=== PATIENT | male | born 1945 | race African-American/Black ===

== ENCOUNTER 2021-02-13 16:27 | Inpatient (IN) | payer OTHER, SELFPAY ==
[2021-02-13] VITALS (9 sets, daily range): BP systolic 111–133; BP diastolic 51–71; PULSE 74–93; RESP 16–26; TEMP 36.9–37.7; O2SAT 97–100; BMI 21.7
--- NOTE | 2021-02-13 16:54 | ED_ITS ---
HPI - Psych General Chief Complaint: Psychiatric Symptoms Stated Complaint: crisis Time Seen by Provider: 02/13/21 16:54 Source: patient Mode of arrival: EMS Limitations: no limitations History of Present Illness HPI Narrative: Patient has some anxiety came from rehab center nonambulatory says that he does on to live in re[facility] as in [facility] center. Also said he does want to live anymore and without any significant plan says that he does not want any treatments but still [facility] to [facility] Related Data Allergies Allergy/AdvReac Type Severity Reaction Status Date / Time cephalexin [From Keflex] Allergy Unknown Verified 02/13/21 16:52 Review of Systems Review of Systems: Yes all other systems are reviewed and are negative [facility] Past Medical History Medical History 23-polyvalent pneumococcal polysaccharide vaccine indication of diabetes in patient 6 to 64 years of age CKD (chronic kidney disease) Colostomy in place HTN (hypertension) Insomnia Malignant neoplasm of colon Schizophrenia Social History Social History Patient Tobacco Use Status: Never used Tobacco Use of substances other than those prescribed or required for medical reasons: No Advance Directives: No Advance Directives Information Provided: No Physical Exam Vital Signs: Vital Signs: Last Vital Signs Temp 99.8 F 02/13/21 19:58 Pulse 85 02/13/21 19:58 Resp 20 02/13/21 19:58 BP 113/57 L 02/13/21 19:58 Pulse Ox 97 02/13/21 19:58 Body Mass Index 21.7 Appearance: Alert. Oriented X3. No acute distress. Eyes: No pallor or icterus ENT: Pharynx normal. Oral Mucosa moist Neck: Normal inspection. Neck supple. CVS: Normal heart rate and rhythm. Pulses normal. Pacemaker+ Respiratory: No respiratory distress. Equal air entry bilateral, no wheezing/rales/rhonchi Abdomen: Soft and nontender. Bowel sounds are present, no mass palpable, colostomy bag in place Skin: Skin warm and dry. Normal skin color. Normal skin turgor. Extremities: No lower extremity edema. No calf tenderness Psych: Denies any current suicidal thought denies any depression or anxiety Neuro: Oriented X 3. Limited movement of lower extremities Course Course Course Narrative: Case discussed with healthcare proxy (invoked) nayana roger who is patient's son, phone #[phone] agreed for blood transfusion MDM - Psych Lab Data Result diagrams: 02/13/21 17:29 02/13/21 17:29 Labs: Lab Results 02/13/21 02/13/21 02/13/21 Range/Units 17:29 17:29 17:29 WBC 9.1 (4.8-10.8) X10*3/uL RBC 3.07 L (4.60-5.80) X10*6/uL Hgb 6.6 L* (14.0-18.0) g/dl Hct 22.8 L (42-52) % MCV 74.3 L (80-98) fL MCH 21.5 L (27.0-33.0) pg MCHC 28.9 L (31.0-36.0) g/dl RDW 19.3 H (11.0-16.0) % Plt Count 261 (160-400) X10*3/uL MPV 9.7 (9.4-12.4) fL Immature Gran % (Auto) 0.4 (0.0-0.4) % Neut % (Auto) 85.0 H (45-73) % Lymph % (Auto) 5.4 L (20-40) % [place] % (Auto) 8.7 (2-11) % Eos % (Auto) 0.3 (0-4) % Baso % (Auto) 0.2 (0-2) % Lymph # (Auto) 0.5 L (1.2-4.9) X10*3/uL [place] # (Auto) 0.8 (0.1-1.2) X10*3/uL Eos # (Auto) 0.0 (0.0-0.4) X10*3/uL Baso # (Auto) 0.0 (0.0-0.2) X10*3/uL Abs Immat Gran (auto) 0.04 H (0.00-0.03) X10*3/uL Absolute Neuts (auto) 7.8 (2.0-8.3) X10*3/uL Absolute Nucleated RBC 0.000 (0.0-0.012) X10*3/uL Nucleated RBC % (auto) 0.0 (0.0-0.2) /100WBC Sodium 140 (135-145) mmol/L Potassium 3.8 (3.3-5.1) mmol/L Chloride 103 (96-108) mmol/L Carbon Dioxide 25 (22-29) mmol/L Anion Gap 16 (12-20) BUN 15 (9-16) mg/dL Creatinine 1.04 (0.5-1.4) mg/dL Estim Creat Clear Calc 62.3 Estimated GFR > 60 Random Glucose 147 H (60-115) mg/dL Calcium 9.0 (8.4-10.2) mg/dL Iron 19 L (45-160) mcg/dL TIBC 183 L (228-428) mcg/dL % Saturation 10 L (15-50) % Unsat Iron Binding 164 ug/dL Ferritin 571 H (20-250) ng/mL Total Bilirubin 0.7 (0.0-1.0) mg/dL AST 46 H (5-37) U/L ALT 24 (0-40) U/L Alkaline Phosphatase 304 H (39-117) U/L Total Protein 7.1 (6.5-8.0) g/dL Albumin 3.3 L (3.5-5.0) g/dL Stool Occult Blood (NEGATIVE) COVID-19 (SILVIA) Negative (Negative) COVID-19 Clin Com See Note Blood Type Antibody Screen Crossmatch 02/13/21 02/13/21 Range/Units 18:31 18:43 WBC (4.8-10.8) X10*3/uL RBC (4.60-5.80) X10*6/uL Hgb (14.0-18.0) g/dl Hct (42-52) % MCV (80-98) fL MCH (27.0-33.0) pg MCHC (31.0-36.0) g/dl RDW (11.0-16.0) % Plt Count (160-400) X10*3/uL MPV (9.4-12.4) fL Immature Gran % (Auto) (0.0-0.4) % Neut % (Auto) (45-73) % Lymph % (Auto) (20-40) % [place] % (Auto) (2-11) % Eos % (Auto) (0-4) % Baso % (Auto) (0-2) % Lymph # (Auto) (1.2-4.9) X10*3/uL [place] # (Auto) (0.1-1.2) X10*3/uL Eos # (Auto) (0.0-0.4) X10*3/uL Baso # (Auto) (0.0-0.2) X10*3/uL Abs Immat Gran (auto) (0.00-0.03) X10*3/uL Absolute Neuts (auto) (2.0-8.3) X10*3/uL Absolute Nucleated RBC (0.0-0.012) X10*3/uL Nucleated RBC % (auto) (0.0-0.2) /100WBC Sodium (135-145) mmol/L Potassium (3.3-5.1) mmol/L Chloride (96-108) mmol/L Carbon Dioxide (22-29) mmol/L Anion Gap (12-20) BUN (9-16) mg/dL Creatinine (0.5-1.4) mg/dL Estim Creat Clear Calc Estimated GFR Random Glucose (60-115) mg/dL Calcium (8.4-10.2) mg/dL Iron (45-160) mcg/dL TIBC (228-428) mcg/dL % Saturation (15-50) % Unsat Iron Binding ug/dL Ferritin (20-250) ng/mL Total Bilirubin (0.0-1.0) mg/dL AST (5-37) U/L ALT (0-40) U/L Alkaline Phosphatase (39-117) U/L Total Protein (6.5-8.0) g/dL Albumin (3.5-5.0) g/dL Stool Occult Blood POSITIVE (NEGATIVE) COVID-19 (SILVIA) (Negative) COVID-19 Clin Com Blood Type A Positive Antibody Screen NEGATIVE Crossmatch See Detail Discharge Plan Discharge Clinical Impression: Severe anemia, Depression with suicidal ideation GI bleed Qualifiers: GI bleed type/associated pathology: unspecified gastrointestinal hemorrhage type Qualified Code(s): K92.2 - Gastrointestinal hemorrhage, unspecified Patient Disposition: Admitted As Inpatient
[2021-02-13 17:36] LABS: MANUAL DIFF FLAG NO
[2021-02-13 17:37] LABS: Basophils Percent Auto 0.2 % (0-2); Hematocrit 22.8 % (42-52); Lymphocytes Absolute Auto 0.5 X10*3/uL (1.2-4.9); Mean Corpuscular HGB Conc 28.9 g/dl (31.0-36.0); Monocytes Percent Auto 8.7 % (2-11)
[2021-02-13 17:43] LABS: Eosinophils Percent Auto 0.3 % (0-4); Imm Gran Abs Auto 0.04 X10*3/uL (0.00-0.03); Imm Gran Pct Auto 0.4 % (0.0-0.4); Lymphocytes Percent Auto 5.4 % (20-40); Mean Corpuscular Hemoglobin 21.5 pg (27.0-33.0); Mean Corpuscular Volume 74.3 fL (80-98); Mean Platelet Volume 9.7 fL (9.4-12.4); Monocytes Absolute Auto 0.8 X10*3/uL (0.1-1.2); Neutrophils Absolute Auto 7.8 X10*3/uL (2.0-8.3); Platelet Count 261 X10*3/uL (160-400); Red Blood Count 3.07 X10*6/uL (4.60-5.80); Red Cell Distribution Width 19.3 % (11.0-16.0); White Blood Count 9.1 X10*3/uL (4.8-10.8)
[2021-02-13 17:53] LABS: Hemoglobin 6.6 g/dl (14.0-18.0)
[2021-02-13 17:54] LABS: COVID-19 Test Negative (Negative)
[2021-02-13 18:03] LABS: Alanine Aminotransferase 24 U/L (0-40); Albumin Level 3.3 g/dL (3.5-5.0); Alkaline Phosphatase 304 U/L (39-117); Anion Gap 16 (12-20); Aspartate Amino Transferase 46 U/L (5-37); Bilirubin Total 0.7 mg/dL (0.0-1.0); Blood Urea Nitrogen 15 mg/dL (9-16); Carbon Dioxide 25 mmol/L (22-29); Chloride 103 mmol/L (96-108); Creatinine Clr Calc Pharmacy 62.3; Estimated Glomerular Filt Rate > 60; Glucose Random 147 mg/dL (60-115); Potassium 3.8 mmol/L (3.3-5.1); Sodium 140 mmol/L (135-145); Total Protein 7.1 g/dL (6.5-8.0)
--- NOTE | 2021-02-13 18:32 | PC.NURSE ---
Low h/h, Dr Rockwell to bedside for occult stool collection from ostomy and positive. New colostomy appliance applied and old appliance leaking. Pt cleaned and repositioned. 18G to right ac. Agreeable to transfusion. NSR on tele.
[2021-02-13 18:40] LABS: OBS Int Ctl Valid YES; OBS1 POSITIVE (NEGATIVE)
[2021-02-13] MEDS: Pantoprazole Sodium 40 MG/10 ML VIAL 80 MG IVPUSH (18:41)
[2021-02-13 18:43] LABS: Iron 19 mcg/dL (45-160); Percent Iron Saturation 10 % (15-50); Total Iron Binding Capacity 183 mcg/dL (228-428); Unsaturated Iron Binding 164 ug/dL
[2021-02-13 19:03] LABS: Ferritin 571 ng/mL (20-250)
--- NOTE | 2021-02-13 19:25 | MHC.CARE ---
CARE team consult received for pt who arrived by ambulance from [facility] for worsening symptoms of paranoia, delusions, and suicidal ideation that have been persisting for three weeks. He had met with the sheriffs detective and made several suicide statements and led her to making the decision to have him sent to the ED for evaluation. This automotive service writer spoke with nurse at the facility (Annetta Espinosa LPN) She shared that he is paranoid at baseline, but has been reporting a spirit named Yvonne who is inside him and controlling his actions and believes that he can cough her out, that there are [employer] [place] dancing around his room at night and tormenting him, that the government has been switching out his internal organs with sandbags, and he recently called [facility] asking them to pull the plug on him. One month ago he was started on risperidone (BID) and remeron at night, which have not bee successful with symptom reduction. The [facility] [place] [facility] for inpt psych admission and have been waiting on the [facility] medical social consultant to complete the needed paperwork. This automotive service writer reached out to [facility] [place] to see if there is any documentation in the record indicating this. After hours cut out machine operator reported that there was a note from yesterday documenting that pt has been experiencing exacerbated psychiatric symptoms but did not indicate a plan of care. This automotive service writer met with pt, who reported that he hasn't been able to eat or sleep and that he wants to just pull the plug. He's [facility] the [facility] to [facility] treatment so he can feel better. When this automotive service writer went to discuss the case with ED physician it was indicated that pt is anemic (hemoglobin 6.6) with a GI bleed and in need of a blood transfusion. Plan is for medical admission. Shane Jones updated. Spoke with manager spa re: current discharge plan, and when pt is ready for discharge it should be coordinated with Shane Jones and [facility]. CARE team available for further behavioral health evaluation if needed. Shane Jones - [phone] [facility] Production Specialist - Denny Valenzuela [phone] Health Care Proxy is invoked (not on file) since 08/23/2020 HCP Roro Paiz, son [phone]
--- NOTE | 2021-02-13 20:09 | MHC.CM.ED ---
Yaquelin OVIEDO, care team tells CM that [facility] has been working with [facility] to admit this pt psychiatrically. Please ngozi out to [place] Department Supervisor at [facility] to review D/C plan for this patient when medically cleared. See Care Team notes per Yaquelin.
[2021-02-13] MEDS: Acetaminophen 325 MG TABLET 650 MG PO (20:50)
--- NOTE | 2021-02-13 20:52 | PHA.MEDREC ---
Pharmacy Consult ? Medication Reconciliation Pharmacy has completed the medication reconciliation. Med list from Shane Jones on [place].
[2021-02-13 21:32] LABS: Appearance Urine HAZY; Color Urine YELLOW; Glucose Urine UA NEG (NEG); Leukocyte Esterase Urine NEG (NEG); Nitrite Urine NEG (NEG); Specific Gravity - Urine 1.015 (1.005-1.025); Urine Blood NEG (NEG); Urine Ketones NEG (NEG); Urine Protein TRACE MG/DL (NEG-TRACE)
[2021-02-13 21:47] LABS: Amphetamine Screen Urine Not Detected (Not Detect); Barbiturates, Urine Not Detected (Not Detect); Benzodiazepines Screen Urine Not Detected (Not Detect); Cannabinoid Screen Urine Not Detected (Not Detect); Cocaine Screen Urine Not Detected (Not Detect); Fentanyl, urine POSITIVE (Not Detect); Opiate Screen Urine Not Detected (Not Detect); Phencyclidine Screen Urine Not Detected (Not Detect)
--- NOTE | 2021-02-13 22:06 | PM.IMHP ---
History of Present Illness Date of Service: 02/13/21 Chief Complaint: Stating that he does know live anymore This is a 75-year-old male with past medical history of CKD, HTN, insomnia, history of malignant neoplasm of colon status post colectomy and colostomy, schizophrenia who presents to the hospital from retirement stating that he does not want to live anymore. Patient has a flat affect, not forthcoming with much history but reports that he is feeling significantly depressed and is just not doing well mentally and [facility]. While in the ED workup showed significant anemia with a hemoglobin of 6.6. When discussed further patient does want blood transfusion and once further intervention and evaluation of his anemia therefore patient will be admitted for that reason. He denies any abdominal pain, no nausea or vomiting, no diarrhea or constipation, he denies any melena, denies any bright red blood per rectum, no hematochezia or hematemesis. Patient denies any headache or change in vision, no chest pain or shortness of breath. No urinary symptoms and no lower extremity edema. On arrival to the ED patient hemodynamically stable with no significant abnormal vital For WBC count of 9.1, hemoglobin of 6.6 (no previous for comparison), hematocrit of 22.8, MCV of 74.3, iron of 19, ferritin of 571 T IV of 183 AST of 46, alk-phos of 304, UA negative, COVID negative. Stool occult blood positive Patient receiving 1 unit of will be admitted for further evaluation Review of Systems Review of Systems: Yes all other systems are reviewed and are negative [facility] Medical History 23-polyvalent pneumococcal polysaccharide vaccine indication of diabetes in patient 6 to 64 years of age CKD (chronic kidney disease) Colostomy in place HTN (hypertension) Insomnia Malignant neoplasm of colon Schizophrenia Pertinent family history: No pertinent history Surgical History History of colectomy Social History Patient Tobacco Use Status: Never used Tobacco Use of substances other than those prescribed or required for medical reasons: No Advance Directives: No Advance Directives Information Provided: No Meds Allergies Allergy/AdvReac Type Severity Reaction Status Date / Time cephalexin [From Keflex] Allergy Unknown Verified 02/13/21 16:52 Active Medications: Current Medications Pharmacy Consult (Consult Rx Perform Med Rec) 1 each MISCELLANE ONCE PRN PRN Reason: Consult order Home Medications Medication Instructions Recorded Confirmed Last Taken Type acetaminophen 325 mg tablet 650 mg PO Q6H PRN 02/13/21 02/13/21 Unknown History amlodipine 10 mg tablet 10 mg PO DAILY 02/13/21 02/13/21 Unknown History ammonium lactate 12 % topical cream 1 appl TOPICAL BID PRN 02/13/21 02/13/21 Unknown History bisacodyl 10 mg rectal suppository 10 mg SC DAILY PRN 02/13/21 02/13/21 Unknown History (Dulcolax (bisacodyl)) ferrous sulfate 325 mg (65 mg 325 mg PO DAILY 02/13/21 02/13/21 Unknown History iron) tablet guaifenesin 100 mg/5 mL oral liquid 100 mg PO Q4H PRN 02/13/21 02/13/21 Unknown History haloperidol 2 mg tablet 2 mg PO BID 02/13/21 02/13/21 Unknown History mirtazapine 7.5 mg tablet 7.5 mg PO BEDTIME 02/13/21 02/13/21 Unknown History polyethylene glycol 3350 17 17 g PO DAILY PRN 02/13/21 02/13/21 Unknown History gram/dose oral powder (Miralax) risperidone 2 mg tablet (Risperdal) 2 mg PO BID 02/13/21 02/13/21 Unknown History rivaroxaban 15 mg tablet (Xarelto) 15 mg PO DAILY 02/13/21 02/13/21 Unknown History trazodone 50 mg tablet 50 mg PO BEDTIME 02/13/21 02/13/21 Unknown History vitamin E 400 unit capsule 400 unit PO DAILY 02/13/21 02/13/21 Unknown History Physical Exam Vital Signs and Narrative: Vital Signs: Last Vital Signs Temp 98.6 F 02/13/21 22:00 Pulse 74 02/13/21 22:00 Resp 26 H 02/13/21 22:00 BP 115/62 02/13/21 22:00 Pulse Ox 97 02/13/21 22:00 Body Mass Index 21.7 Const: Other: Appears significantly depressed with flat affect General: cooperative and no acute distress Orientation/consciousness: patient oriented x3 Eyes: General: appearance normal, both eyes and all related structures Resp: Effort & Inspection: normal respiratory effort Auscultation: clear to auscultation bilaterally Cardio: Rate: regular rate Rhythm: regular rhythm GI: Other: Colostomy bag with small amount of brown stool Palpation (GI): Soft to palpation Auscultation: normal bowel sounds Skin: General skin exam: no rashes or lesions noted Neuro: General: patient oriented x3 Cognition (Neuro): normal cognition Extrem: General: Yes normal to inspection and Yes no pedal edema Results Labs CBC and Chem 7: 02/13/21 17:29 02/13/21 17:29 Labs: Laboratory Results - last 24 hr 02/13/21 02/13/21 02/13/21 17:29 17:29 17:29 MCV 74.3 L MCH 21.5 L MCHC 28.9 L RDW 19.3 H Plt Count 261 MPV 9.7 Immature Gran % (Auto) 0.4 Neut % (Auto) 85.0 H Lymph % (Auto) 5.4 L [place] % (Auto) 8.7 Eos % (Auto) 0.3 Baso % (Auto) 0.2 Lymph # (Auto) 0.5 L [place] # (Auto) 0.8 Eos # (Auto) 0.0 Baso # (Auto) 0.0 Abs Immat Gran (auto) 0.04 H Absolute Neuts (auto) 7.8 Absolute Nucleated RBC 0.000 Nucleated RBC % (auto) 0.0 Anion Gap 16 Estim Creat Clear Calc 62.3 Estimated GFR > 60 Random Glucose 147 H Calcium 9.0 Iron 19 L TIBC 183 L % Saturation 10 L Unsat Iron Binding 164 Ferritin 571 H Total Bilirubin 0.7 AST 46 H ALT 24 Alkaline Phosphatase 304 H Total Protein 7.1 Albumin 3.3 L Urine Color Urine Appearance Urine pH Ur Specific [place] Urine Protein Urine Glucose (UA) Urine Ketones Urine Blood Urine Nitrite Ur Leukocyte Esterase Stool Occult Blood Urine Opiates Screen Urine Fentanyl Screen Ur Barbiturates Screen Ur Phencyclidine Scrn Ur Amphetamines Screen U Benzodiazepines Scrn Urine Cocaine Screen U Marijuana (THC) Screen COVID-19 (SILVIA) Negative COVID-19 Clin Com See Note Blood Type Antibody Screen Crossmatch 02/13/21 02/13/21 02/13/21 18:31 18:43 21:24 MCV MCH MCHC RDW Plt Count MPV Immature Gran % (Auto) Neut % (Auto) Lymph % (Auto) [place] % (Auto) Eos % (Auto) Baso % (Auto) Lymph # (Auto) [place] # (Auto) Eos # (Auto) Baso # (Auto) Abs Immat Gran (auto) Absolute Neuts (auto) Absolute Nucleated RBC Nucleated RBC % (auto) Anion Gap Estim Creat Clear Calc Estimated GFR Random Glucose Calcium Iron TIBC % Saturation Unsat Iron Binding Ferritin Total Bilirubin AST ALT Alkaline Phosphatase Total Protein Albumin Urine Color YELLOW Urine Appearance HAZY Urine pH 6.0 Ur Specific [place] 1.015 Urine Protein TRACE Urine Glucose (UA) NEG Urine Ketones NEG Urine Blood NEG Urine Nitrite NEG Ur Leukocyte Esterase NEG Stool Occult Blood POSITIVE Urine Opiates Screen Urine Fentanyl Screen Ur Barbiturates Screen Ur Phencyclidine Scrn Ur Amphetamines Screen U Benzodiazepines Scrn Urine Cocaine Screen U Marijuana (THC) Screen COVID-19 (SILVIA) COVID-19 StepUp Com Blood Type A Positive Antibody Screen NEGATIVE Crossmatch See Detail 02/13/21 21:24 MCV MCH MCHC RDW Plt Count MPV Immature Gran % (Auto) Neut % (Auto) Lymph % (Auto) [place] % (Auto) Eos % (Auto) Baso % (Auto) Lymph # (Auto) [place] # (Auto) Eos # (Auto) Baso # (Auto) Abs Immat Gran (auto) Absolute Neuts (auto) Absolute Nucleated RBC Nucleated RBC % (auto) Anion Gap Estim Creat Clear Calc Estimated GFR Random Glucose Calcium Iron TIBC % Saturation Unsat Iron Binding Ferritin Total Bilirubin AST ALT Alkaline Phosphatase Total Protein Albumin Urine Color Urine Appearance Urine pH Ur Specific [place] Urine Protein Urine Glucose (UA) Urine Ketones Urine Blood Urine Nitrite Ur Leukocyte Esterase Stool Occult Blood Urine Opiates Screen Not Detected Urine Fentanyl Screen POSITIVE H Ur Barbiturates Screen Not Detected Ur Phencyclidine Scrn Not Detected Ur Amphetamines Screen Not Detected U Benzodiazepines Scrn Not Detected Urine Cocaine Screen Not Detected U Marijuana (THC) Screen Not Detected COVID-19 (SILVIA) COVID-Playdek Com Blood Type Antibody Screen Crossmatch Assessment and Plan (1) GI bleed: Qualifiers: GI bleed type/associated pathology: unspecified gastrointestinal hemorrhage type Qualified Code(s): K92.2 - Gastrointestinal hemorrhage, unspecified Status: Acute (2) Severe anemia: Status: Acute (3) Depression with suicidal ideation: Status: Acute This is a 75-year-old male with past medical history of colon cancer status post colectomy, insomnia, hypertension who initially came into the hospital for depression and suicidal ideation is now being admitted for significant anemia # macrocytic anemia - possibly a combination of anemia of chronic disease as well as GI bleed as he has positive occult stool - patient receiving PRBC - will follow H&H - gastroenterology consult - will make NPO # GI bleed - has significant anemia with positive guaiac - patient on Xarelto for PE/DVT prevention per documentation/ED physician - will hold Xarelto - consult GI # depression suicidal ideation - patient has no plan but feels very depressed and would like to - care team consult - close monitoring # insomnia - continue mirtazapine and trazodone DVT prophylaxis: SCDs Quality Stroke Does the patient have a stroke diagnosis?: No VTE Prior VTE?: No VTE Risk Level:: Medical - moderate - high VTE Device Contraindication: N/A - Device Ordered VTE Drug Contraindication: Treatment Not Indicated
--- NOTE | 2021-02-13 22:40 | PC.NURSE ---
Pt alert and confused per baseline mental status. Pt received 1 unit blood transfusion and tolerated well. IV intact and flushes well. Vitals remain stable, afebrile. No transfusion reactions noted at this time. Pt resting in stretcher without complaints, will continue to monitor.
[2021-02-14] VITALS (9 sets, daily range): BP systolic 103–134; BP diastolic 46–67; PULSE 76–87; RESP 16–37; TEMP 36.6–37.4; O2SAT 97–100
--- NOTE | 2021-02-14 06:04 | PC.NURSE ---
Pt alert and confused, calm and cooperative. Pt at baseline mental status. Pt denies pain. Pt tuned and positioned. Pt voided multiple times over night. Linens changed. IV intact. Vitals stable. Will continue to monitor.
--- NOTE | 2021-02-14 07:25 | PC.NURSE ---
Assumed care of patient. Pt is resting comfortably at this time and does not appear to be in any distress. Pt waiting for room assignment.
--- NOTE | 2021-02-14 08:36 | PC.NURSE ---
Pt is now awake and is requesting to eat, however pt is NPO for a GI bleed. Pt reassured, but is confused.
[2021-02-14] MEDS: amLODIPine Besylate 10 MG TABLET PO (09:21)
[2021-02-14] MEDS: HaloperidoL 1 MG TABLET 2 MG PO ×2 (09:21→19:53)
[2021-02-14] MEDS: risperiDONE 2 MG TABLET PO ×2 (09:21→19:53)
--- NOTE | 2021-02-14 10:00 | P.CNGI_ITS ---
History of Present Illness Data of Consult Service Date: 02/14/21 Requesting physician: Jack Staton Primary Care Provider: Kia Colon MD HPI Reason for consult: anemia 75-year-old male with history of CKD, HTN, insomnia, history of malignant neoplasm of colon s/p partial colectomy and colostomy, schizophrenia who I am seeing for assessment for anemia. Patient is poor historian and not engaged with the conversation. [facility] due to suicidal ideation, and feeling depressed and needing help to . As part of evaluation he had blood work which revealed HGB 6.6, and elevated LFT, low iron sat, elevated ferritin, neg UA with no known prior results. He denies seeing any blood in stoma bag, no melena or rectal bleeding. Appetite has been poor and weight has been oscillating up and down. He denies abdominal pain, no nausea, vomiting, or dysphagia. He was agreeable to a blood transfusion which he received. [facility] and did not know why he has a stoma. He refuses to have endoscopic work up for anemia. Review of Systems Review of Systems: Constitutional : No Weight loss, No Fever, No Chills ENT/Mouth : No sore throat, No Rhinorrhea Eyes: No Swelling, No Redness Cardiovascular : No Chest Pain, No SOB, No Edema Respiratory : No Cough, No Sputum, No Wheezing Gastrointestinal : see HPI Genitourinary : NO Dysuria, No Urinary Frequency, No Hematuria, No Urgency Musculoskeletal : No joint pain, No Myalgias, No Joint Swelling Skin : No Skin Lesions, No rash Neuro : No Weakness, No Numbness, No Dizziness, No Headache Psych : No Anxiety/Panic, ++ Depression Heme/Lymph: No Bruising, No Lymphadenopathy Endocrine : No Polyuria, No Polydipsia All other systems reviewed and are negative. Yes all other systems are reviewed and are negative [facility] Past Medical History Medical History 23-polyvalent pneumococcal polysaccharide vaccine indication of diabetes in patient 6 to 64 years of age CKD (chronic kidney disease) Colostomy in place HTN (hypertension) Insomnia Malignant neoplasm of colon Schizophrenia Family History Pertinent family history: No pertinent history Surgical History Surgical History History of colectomy Social History Social History Patient Tobacco Use Status: Never used Tobacco Use of substances other than those prescribed or required for medical reasons: No Advance Directives: No Advance Directives Information Provided: No Meds Allergies Allergy/AdvReac Type Severity Reaction Status Date / Time cephalexin [From Keflex] Allergy Unknown Verified 02/13/21 16:52 Active Medications: Current Medications Acetaminophen (Acetaminophen 325 Mg Tablet) 650 mg PO Q6H PRN PRN Reason: PAIN/FEVER Amlodipine Besylate (Amlodipine Besylate 10 Mg Tablet) 10 mg PO DAILY [facility]; Protocol Last Admin: 02/14/21 09:21 Dose: 10 mg Documented by: Guaifenesin (Guaifenesin 100 Mg/5 Ml Liquid) 5 ml PO Q4H PRN PRN Reason: Cough Haloperidol (Haloperidol 1 Mg Tablet) 2 mg PO BID [facility] Last Admin: 02/14/21 09:21 Dose: 2 mg Documented by: Lactic Acid (Ammonium Lactate 12 % Cream 140 Gm Tube) 1 appl TOPICAL BID PRN; Protocol PRN Reason: Dry Skin Mirtazapine (Mirtazapine 7.5 Mg Tablet) 7.5 mg PO BEDTIME [facility] Ondansetron HCl (Ondansetron Hcl 4 Mg/2 Ml Vial) 4 mg IVPUSH Q8H PRN PRN Reason: Nausea and Vomiting Pharmacy Consult (Consult Rx Perform Med Rec) 1 each MISCELLANE ONCE PRN PRN Reason: Consult order Polyethylene Glycol (Polyethylene Glycol 3350 17 Gm Powd.Pack) 17 gm PO DAILY PRN PRN Reason: Constipation Risperidone (Risperidone 2 Mg Tablet) 2 mg PO BID [facility] Last Admin: 02/14/21 09:21 Dose: 2 mg Documented by: Sodium Chloride (0.9 % Sodium Chloride Flush 3 Ml Syringe) 3 ml IVFLUSH QSHIFT [facility] Last Admin: 02/14/21 07:10 Dose: Not Given Documented by: Trazodone HCl (Trazodone Hcl 50 Mg Tablet) 50 mg PO BEDTIME [facility] Home Medications Medication Instructions Recorded Confirmed Last Taken Type acetaminophen 325 mg tablet 650 mg PO Q6H PRN 02/13/21 02/13/21 Unknown History amlodipine 10 mg tablet 10 mg PO DAILY 02/13/21 02/13/21 Unknown History ammonium lactate 12 % topical cream 1 appl TOPICAL BID PRN 02/13/21 02/13/21 Unknown History bisacodyl 10 mg rectal suppository 10 mg ME DAILY PRN 02/13/21 02/13/21 Unknown History (Dulcolax (bisacodyl)) ferrous sulfate 325 mg (65 mg 325 mg PO DAILY 02/13/21 02/13/21 Unknown History iron) tablet guaifenesin 100 mg/5 mL oral liquid 100 mg PO Q4H PRN 02/13/21 02/13/21 Unknown History haloperidol 2 mg tablet 2 mg PO BID 02/13/21 02/13/21 Unknown History mirtazapine 7.5 mg tablet 7.5 mg PO BEDTIME 02/13/21 02/13/21 Unknown History polyethylene glycol 3350 17 17 g PO DAILY PRN 02/13/21 02/13/21 Unknown History gram/dose oral powder (Miralax) risperidone 2 mg tablet (Risperdal) 2 mg PO BID 02/13/21 02/13/21 Unknown History rivaroxaban 15 mg tablet (Xarelto) 15 mg PO DAILY 02/13/21 02/13/21 Unknown History trazodone 50 mg tablet 50 mg PO BEDTIME 02/13/21 02/13/21 Unknown History vitamin E 400 unit capsule 400 unit PO DAILY 02/13/21 02/13/21 Unknown History Physical Exam Vital Signs: Vital Signs: Last Vital Signs Temp 98.0 F 02/14/21 07:00 Pulse 84 02/14/21 09:23 Resp 16 02/14/21 09:23 BP 103/46 L 02/14/21 09:23 Pulse Ox 99 02/14/21 09:23 Body Mass Index 21.7 Const: Other: Appears significantly depressed with flat affect General: cooperative and no acute distress Orientation/consciousness: patient oriented x3 Eyes: General: appearance normal, both eyes and all related structures Resp: Effort & Inspection: normal respiratory effort Auscultation: clear to auscultation bilaterally Cardio: Rate: regular rate Rhythm: regular rhythm GI: Other: Colostomy bag with brown stool--no fresh blood or melena hard and firm liver Palpation (GI): Soft to palpation, Firmness to palpation present (GI) in the RUQ and Hepatomegaly present Auscultation: normal bowel sounds Skin: General skin exam: no rashes or lesions noted Neuro: General: patient oriented x3 Cognition (Neuro): normal cognition Extrem: General: Yes normal to inspection and Yes no pedal edema Psych: Appearance: grossly normal Affect: Sad affect present and Indifferent affect present Results Labs CBC & Chem 7: 02/14/21 10:44 02/13/21 17:29 Labs: Short CBC 02/13/21 Range/Units 17:29 WBC 9.1 (4.8-10.8) X10*3/uL Hgb 6.6 L* (14.0-18.0) g/dl Hct 22.8 L (42-52) % Plt Count 261 (160-400) X10*3/uL BMP 02/13/21 17:29 Sodium 140 Potassium 3.8 Chloride 103 Carbon Dioxide 25 BUN 15 Creatinine 1.04 Calcium 9.0 Liver Function 02/13/21 Range/Units 17:29 Total Bilirubin 0.7 (0.0-1.0) mg/dL AST 46 H (5-37) U/L ALT 24 (0-40) U/L Alkaline Phosphatase 304 H (39-117) U/L Albumin 3.3 L (3.5-5.0) g/dL Urine 02/13/21 Range/Units 21:24 Urine Color YELLOW Urine Appearance HAZY Urine pH 6.0 (5.0-8.0) Ur Specific [place] 1.015 (1.005-1.025) Urine Protein TRACE (NEG-TRACE) MG/DL Urine Glucose (UA) NEG (NEG) MG/DL Assessment and Plan (1) Severe anemia: Status: Acute 1/ Anemia, microcytic with low iron sat and documented hx of colon cancer with partial colectomy of which he knows little. He appears to have firm liver concern would be recurrence of colonic cancer and possible mets ddx: PUD, gastritis, esohagitis, polyp lesion, AVM plan: 1/ Currently he declines endoscopic assessment, recommend CT imaging wth PO and IV contrast, if changes his mind we can organize EGD,colonoscopy, psych input to determine competency may also be indicated. Procedures Date of Service Date of Service: 02/14/21
[2021-02-14 10:48] LABS: Hemoglobin 7.6 g/dl (14.0-18.0); Mean Corpuscular HGB Conc 30.4 g/dl (31.0-36.0); Mean Corpuscular Hemoglobin 23.1 pg (27.0-33.0); Mean Platelet Volume 9.9 fL (9.4-12.4); Platelet Count 247 X10*3/uL (160-400); Red Blood Count 3.29 X10*6/uL (4.60-5.80); Red Cell Distribution Width 18.9 % (11.0-16.0); White Blood Count 10.7 X10*3/uL (4.8-10.8)
--- NOTE | 2021-02-14 12:55 | MHC.CM.PN ---
Attempted to meet with patient in regards to discharge planning. Patient is currently confused. Spoke with patient's son, Reji via telephone at [phone]. 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 Patient has been bedbound recently. Patient has been to [facility] [place] in the past. Reji is requesting referral there. Spoke with Bryanna at the [facility]. There is currently a wait list, but clinical can be faxed to Elinor Osborne and Dr Morrissey at the [facility] at [phone]. Information faxed. Reji aware of bed wait. Continue to monitor for d/c needs.
--- NOTE | 2021-02-14 14:55 | PM.EVENT ---
Event Note Date of Service: 02/14/21 Event Note: Patient seen and examined in the ER; exam unchanged since admission. Hemoglobin 7.6 after 1 unit of packed red cells; GI input appreciated however patient refusing all studies including EGD and colonoscopy at this time. Will revisit additional transfusion and proceed as indicated
[2021-02-14] MEDS: traZODone HCL 50 MG TABLET PO (19:53)
[2021-02-14] MEDS: Mirtazapine 7.5 MG TABLET PO (19:53)
[2021-02-14] MEDS: 0.9 % Sodium Chloride Flush 3 ML SYRINGE IVFLUSH (19:53)
[2021-02-15] VITALS (7 sets, daily range): BP systolic 116–131; BP diastolic 56–63; PULSE 76–84; RESP 16–20; TEMP 36.6–37.4; O2SAT 98–100
[2021-02-15 05:59] LABS: MANUAL DIFF FLAG NO
[2021-02-15 06:07] LABS: Basophils Percent Auto 0.1 % (0-2); Eosinophils Absolute Auto 0.1 X10*3/uL (0.0-0.4); Eosinophils Percent Auto 0.6 % (0-4); Hematocrit 24.2 % (42-52); Hemoglobin 7.3 g/dl (14.0-18.0); Imm Gran Abs Auto 0.05 X10*3/uL (0.00-0.03); Imm Gran Pct Auto 0.6 % (0.0-0.4); Lymphocytes Absolute Auto 0.5 X10*3/uL (1.2-4.9); Mean Corpuscular HGB Conc 30.2 g/dl (31.0-36.0); Mean Corpuscular Volume 76.1 fL (80-98); Mean Platelet Volume 10.1 fL (9.4-12.4); Monocytes Absolute Auto 0.9 X10*3/uL (0.1-1.2); Monocytes Percent Auto 11.1 % (2-11); Neutrophils Absolute Auto 6.9 X10*3/uL (2.0-8.3); Neutrophils Percent Auto 81.6 % (45-73); Platelet Count 276 X10*3/uL (160-400); Red Blood Count 3.18 X10*6/uL (4.60-5.80); Red Cell Distribution Width 19.5 % (11.0-16.0); White Blood Count 8.5 X10*3/uL (4.8-10.8)
[2021-02-15 06:27] LABS: Anion Gap 16 (12-20); Blood Urea Nitrogen 17 mg/dL (9-16); Calcium 8.9 mg/dL (8.4-10.2); Carbon Dioxide 22 mmol/L (22-29); Chloride 105 mmol/L (96-108); Estimated Glomerular Filt Rate > 60; Glucose Random 159 mg/dL (60-115); Sodium 139 mmol/L (135-145)
[2021-02-15] MEDS: 0.9 % Sodium Chloride Flush 3 ML SYRINGE IVFLUSH ×2 (08:30→14:41)
[2021-02-15] MEDS: HaloperidoL 1 MG TABLET 2 MG PO ×2 (08:31→21:57)
[2021-02-15] MEDS: amLODIPine Besylate 10 MG TABLET PO (08:31)
[2021-02-15] MEDS: risperiDONE 2 MG TABLET PO ×2 (08:32→21:57)
--- NOTE | 2021-02-15 11:10 | MHC.CM.PN ---
Addendum entered by Randi Jacques 02/15/21 13:14: CM RECEIVED MESSAGE FROM [facility] LIAISON INDICATING THEY ARE SEEKING A PSYCH EVAL FOR MEDICATION RECOMMENDATIONS. THEY ALSO REPORT THE PTS HCP IS INVOKED. Original Note: CM INFORMED PT CLEARED TO RETURN TO SNF TODAY HOWEVER SNF HAS INDICATED THEY WILL NOT TAKE PT BACK WITHOUT A PSYCH EVAL. OF NOTE: SNF HAS ALSO INDICATED THEY WILL NEED TO CLEAR PTS RETURN WITH ADMINISTRATION PRIOR TO ACCEPTING PT BACK ONCE A PSYCH EVAL IS COMPLETE. CM HAS LEFT A MESSAGE FOR SNF REQUESTING CLARIFICATION REGARDING REQUEST FOR PSYCH EVAL TO DETERMINE WHAT THEY ARE SEEKING TO ACCOMPLISH. AWAITING RESPONSE.
--- NOTE | 2021-02-15 14:21 | MHC.CLN ---
RE: CONSULT PT'S CURRENT WEIGHT IS 155 POUNDS PT STATES HIS UBW IS 156 POUNDS PT DOES NOT TRIGGER FOR SIGNIFICANT WT LOSS AT THIS TIME
--- NOTE | 2021-02-15 16:28 | P.PNIM_ITS ---
Subjective Subjective Date of Service: 02/15/21 Interval History: No acute events overnight. Remains confused but hemodynamically stable. Discharge planners notes reviewed. Awaiting bed at [facility] manner pending psych eval Review of Systems Denies chest pain Denies shortness of breath Denies nausea vomiting diarrhea Physical Exam Vital Signs: Vital Signs: Last Vital Signs Temp 99.3 F 02/15/21 15:16 Pulse 81 02/15/21 15:16 Resp 16 02/15/21 15:16 BP 126/62 02/15/21 15:16 Pulse Ox 99 02/15/21 15:16 Body Mass Index 21.7 Const: Other: Awake/confused no acute distress HENMT: Other: Oropharynx clear membranes moist Resp: Other: Clear to auscultation; no rales rhonchi or wheezes Cardio: Other: No S4; S1-S2; no S3 without GI: Other: Soft nontender nondistended with normoactive bowel sounds. No appr eciable hepatosplenomegaly Neuro: Other: Awake/confused. Moving all extremities with equal power. He he Objective Data Active Medications Acetaminophen (Acetaminophen 325 Mg Tablet) 650 mg PO Q6H PRN PRN Reason: PAIN/FEVER Amlodipine Besylate (Amlodipine Besylate 10 Mg Tablet) 10 mg PO DAILY [facility]; Protocol Last Admin: 02/15/21 08:31 Dose: 10 mg Documented by: ALBA Guaifenesin (Guaifenesin 100 Mg/5 Ml Liquid) 5 ml PO Q4H PRN PRN Reason: Cough Haloperidol (Haloperidol 1 Mg Tablet) 2 mg PO BID [facility] Last Admin: 02/15/21 08:31 Dose: 2 mg Documented by: ALBA Lactic Acid (Ammonium Lactate 12 % Cream 140 Gm Tube) 1 appl TOPICAL BID PRN; Protocol PRN Reason: Dry Skin Mirtazapine (Mirtazapine 7.5 Mg Tablet) 7.5 mg PO BEDTIME [facility] Last Admin: 02/14/21 19:53 Dose: 7.5 mg Documented by: LUISANA Ondansetron HCl (Ondansetron Hcl 4 Mg/2 Ml Vial) 4 mg IVPUSH Q8H PRN PRN Reason: Nausea and Vomiting Pharmacy Consult (Consult Rx Perform Med Rec) 1 each MISCELLANE ONCE PRN PRN Reason: Consult order Polyethylene Glycol (Polyethylene Glycol 3350 17 Gm Powd.Pack) 17 gm PO DAILY PRN PRN Reason: Constipation Risperidone (Risperidone 2 Mg Tablet) 2 mg PO BID [facility] Last Admin: 02/15/21 08:32 Dose: 2 mg Documented by: ALBA Sodium Chloride (0.9 % Sodium Chloride Flush 3 Ml Syringe) 3 ml IVFLUSH QSHIFT [facility] Last Admin: 02/15/21 14:41 Dose: 3 ml Documented by: ALBA Trazodone HCl (Trazodone Hcl 50 Mg Tablet) 50 mg PO BEDTIME [facility] Last Admin: 02/14/21 19:53 Dose: 50 mg Documented by: LUISANA Labs CBC & Chem 7: 02/15/21 05:19 02/15/21 05:19 Labs: Laboratory Results - last 24 hr 02/15/21 02/15/21 05:19 05:19 MCV 76.1 L MCH 23.0 L MCHC 30.2 L RDW 19.5 H Plt Count 276 MPV 10.1 Immature Gran % (Auto) 0.6 H Neut % (Auto) 81.6 H Lymph % (Auto) 6.0 L Dillon % (Auto) 11.1 H Eos % (Auto) 0.6 Baso % (Auto) 0.1 Lymph # (Auto) 0.5 L Dillon # (Auto) 0.9 Eos # (Auto) 0.1 Baso # (Auto) 0.0 Abs Immat Gran (auto) 0.05 H Absolute Neuts (auto) 6.9 Absolute Nucleated RBC 0.000 Nucleated RBC % (auto) 0.0 Anion Gap 16 Estim Creat Clear Calc 60.0 Estimated GFR > 60 Random Glucose 159 H Calcium 8.9 Assessment and Plan (1) Severe anemia: Status: Acute Assessment and Plan: This is a 75-year-old male with past medical history of colon cancer status post colectomy, insomnia, hypertension who initially came into the hospital for depression and suicidal ideation: Found to be anemic and admitted for transfusion. At this point in time he is medically stable awaiting psych recommendations to return to with staff 1.Macrocytic anemia Receive 1 unit packed cells with improvement in hemoglobin; refused all invasive procedures offered by GI. Family aware and will pursue outpatient workup 2.Depression suicidal ideation: Has previously been controlled by med; await psych input for med changes prior to return to [facility] DVT prophylaxis: SCDs Quality Stroke Does the patient have a stroke diagnosis?: No VTE Prior VTE?: No VTE Risk Level:: Medical - moderate - high VTE Device Contraindication: N/A - Device Ordered VTE Drug Contraindication: Treatment Not Indicated
--- NOTE | 2021-02-15 17:39 | P.CNPS_ITS ---
History of Present Illness Date of Service: 02/15/21 Chief Complaint: Anemia, GI Bleed Reason for Consult: medication management Requesting physician: Jack Staton Discussed with referring provider: Yes Sources of Information: patient interviewed, chart reviewed and crisis/core team assessment reviewed HPI Narrative: Kasi is a 75 y.o. Male who carries a dx of schizophrenia. He was admitted to [facility] 02/13/21 from [facility] due to stating that he does not want to live anymore. He is perseverative in stating [facility] in [facility]. He has past medical history of CKD, HTN, insomnia, history of malignant neoplasm of colon status post colectomy and colostomy. While in the ED workup showed significant anemia with a hemoglobin of 6.6, admitted to [facility] for stabilization. Stool occult blood positive and GI consult recommended CT scan, endoscopy, colonoscopy, however Kasi has refused all invasive procedures offered by GI. He has been deemed to not have capacity to make medical decisions due to mental status, HCP invoked and family aware of his decisions. Psych consult placed for medication evaluation due to sx of depression. I evaluated the pt this afternoon and he reports ?Im better.? Says ?sometimes i have anxiety attacks from staying in bed too long,? says changing positions helps, denies that he is able to ambulate without wheelchair out of bed. [facility]. Reports he feels depressed ?when i cant sleep? but states he has been sleeping better at the hospital. He endorsed some delusional thought content, as he stated ?they had my legs tied down? and that the ?bed gets tighter and tighter sometimes.? He reports feeling safe in the hospital. Denies SI/SIB upon inquiry today. Currently denies hallucinations. Denies anxiety or agitation. No assaultive ideation or HI.? I spoke with his nurse, Annetta, at [facility]. She reports at baseline, Kasi lacks insight/ understanding of his medical conditions, believes he has ostomy because the government removed his vital organs and replaced them with sand bags. He also has a fixed paranoid delusion that the government put an entity he calls Yvonne inside him, sometimes he ?coughs to get her out.? Annetta denies behavioral issues at halfway, says he mostly stays in bed, ambulates in wheelchair. Sleep is good, sometimes utilizes PRN trazodone. She reports he has recently been stating ?I want to ,? has tried to elope and has been c alling different [facility] locations to get placement. Also started to decline meals. I spoke with his , Angie, who reports ?since he went to your hospital he sounds better.? Per , ?psychologically he has convinced himself he cant stand up and walk.? She states she would like him to return home and live with her with hospice care, has ordered him a wheelchair. He was residing with her 2- 3 mo ago, had nursing care at home through the [facility]. She agrees he is depressed but attributes this to him not wanting to be at [facility] anymore.? Medical Evaluation Reviewed: Yes [facility] Medical History 23-polyvalent pneumococcal polysaccharide vaccine indication of diabetes in patient 6 to 64 years of age CKD (chronic kidney disease) Colostomy in place HTN (hypertension) Insomnia Malignant neoplasm of colon Schizophrenia Surgical History History of colectomy Diagnostics Vital Signs (24Hr): Vital Signs - 24 hr 02/14/21 19:36 02/14/21 23:22 02/15/21 03:26 Temperature 99.4 F 98.1 F 98.0 F Pulse Rate 83 87 76 Respiratory Rate 18 18 18 Blood Pressure 129/67 105/56 L 117/56 L Pulse Oximetry 99 98 98 02/15/21 07:14 02/15/21 08:31 02/15/21 11:27 Temperature 97.8 F 98.0 F Pulse Rate 80 80 81 Respiratory Rate 18 18 Blood Pressure 126/60 126/60 116/59 L Pulse Oximetry 100 99 02/15/21 15:16 Temperature 99.3 F Pulse Rate 81 Respiratory Rate 16 Blood Pressure 126/62 Pulse Oximetry 99 Body Mass Index 21.7 Labs Results: 02/15/21 05:19 02/15/21 05:19 Labs: Laboratory Results - last 48 hr 02/13/21 02/13/21 02/13/21 17:29 17:29 17:29 WBC 9.1 RBC 3.07 L Hgb 6.6 L* Hct 22.8 L MCV 74.3 L MCH 21.5 L MCHC 28.9 L RDW 19.3 H Plt Count 261 MPV 9.7 Immature Gran % (Auto) 0.4 Neut % (Auto) 85.0 H Lymph % (Auto) 5.4 L Burleigh % (Auto) 8.7 Eos % (Auto) 0.3 Baso % (Auto) 0.2 Lymph # (Auto) 0.5 L Burleigh # (Auto) 0.8 Eos # (Auto) 0.0 Baso # (Auto) 0.0 Abs Immat Gran (auto) 0.04 H Absolute Neuts (auto) 7.8 Absolute Nucleated RBC 0.000 Nucleated RBC % (auto) 0.0 Sodium 140 Potassium 3.8 Chloride 103 Carbon Dioxide 25 Anion Gap 16 BUN 15 Creatinine 1.04 Estim Creat Clear Calc 62.3 Estimated GFR > 60 Random Glucose 147 H Calcium 9.0 Iron 19 L TIBC 183 L % Saturation 10 L Unsat Iron Binding 164 Ferritin 571 H Total Bilirubin 0.7 AST 46 H ALT 24 Alkaline Phosphatase 304 H Total Protein 7.1 Albumin 3.3 L Urine Color Urine Appearance Urine pH Ur Specific Harris Urine Protein Urine Glucose (UA) Urine Ketones Urine Blood Urine Nitrite Ur Leukocyte Esterase Stool Occult Blood Urine Opiates Screen Urine Fentanyl Screen Ur Barbiturates Screen Ur Phencyclidine Scrn Ur Amphetamines Screen U Benzodiazepines Scrn Urine Cocaine Screen U Marijuana (THC) Screen COVID-19 (SILVIA) Negative COVID-19 Clin Com See Note Blood Type Antibody Screen Crossmatch 02/13/21 02/13/21 02/13/21 18:31 18:43 21:24 WBC RBC Hgb Hct MCV MCH MCHC RDW Plt Count MPV Immature Gran % (Auto) Neut % (Auto) Lymph % (Auto) Burleigh % (Auto) Eos % (Auto) Baso % (Auto) Lymph # (Auto) Burleigh # (Auto) Eos # (Auto) Baso # (Auto) Abs Immat Gran (auto) Absolute Neuts (auto) Absolute Nucleated RBC Nucleated RBC % (auto) Sodium Potassium Chloride Carbon Dioxide Anion Gap BUN Creatinine Estim Creat Clear Calc Estimated GFR Random Glucose Calcium Iron TIBC % Saturation Unsat Iron Binding Ferritin Total Bilirubin AST ALT Alkaline Phosphatase Total Protein Albumin Urine Color YELLOW Urine Appearance HAZY Urine pH 6.0 Ur Specific Harris 1.015 Urine Protein TRACE Urine Glucose (UA) NEG Urine Ketones NEG Urine Blood NEG Urine Nitrite NEG Ur Leukocyte Esterase NEG Stool Occult Blood POSITIVE Urine Opiates Screen Urine Fentanyl Screen Ur Barbiturates Screen Ur Phencyclidine Scrn Ur Amphetamines Screen U Benzodiazepines Scrn Urine Cocaine Screen U Marijuana (THC) Screen COVID-19 (SILVIA) COVID-19 Clin Com Blood Type A Positive Antibody Screen NEGATIVE Crossmatch See Detail 02/13/21 02/14/21 02/15/21 21:24 10:44 05:19 WBC 10.7 8.5 RBC 3.29 L 3.18 L Hgb 7.6 L 7.3 L Hct 25.0 L 24.2 L MCV 76.0 L 76.1 L MCH 23.1 L 23.0 L MCHC 30.4 L 30.2 L RDW 18.9 H 19.5 H Plt Count 247 276 MPV 9.9 10.1 Immature Gran % (Auto) 0.6 H Neut % (Auto) 81.6 H Lymph % (Auto) 6.0 L Burleigh % (Auto) 11.1 H Eos % (Auto) 0.6 Baso % (Auto) 0.1 Lymph # (Auto) 0.5 L Burleigh # (Auto) 0.9 Eos # (Auto) 0.1 Baso # (Auto) 0.0 Abs Immat Gran (auto) 0.05 H Absolute Neuts (auto) 6.9 Absolute Nucleated RBC 0.000 0.000 Nucleated RBC % (auto) 0.0 0.0 Sodium Potassium Chloride Carbon Dioxide Anion Gap BUN Creatinine Estim Creat Clear Calc Estimated GFR Random Glucose Calcium Iron TIBC % Saturation Unsat Iron Binding Ferritin Total Bilirubin AST ALT Alkaline Phosphatase Total Protein Albumin Urine Color Urine Appearance Urine pH Ur Specific Harris Urine Protein Urine Glucose (UA) Urine Ketones Urine Blood Urine Nitrite Ur Leukocyte Esterase Stool Occult Blood Urine Opiates Screen Not Detected Urine Fentanyl Screen POSITIVE H Ur Barbiturates Screen Not Detected Ur Phencyclidine Scrn Not Detected Ur Amphetamines Screen Not Detected U Benzodiazepines Scrn Not Detected Urine Cocaine Screen Not Detected U Marijuana (THC) Screen Not Detected COVID-19 (SILVIA) COVID-19 Clin Com Blood Type Antibody Screen Crossmatch 02/15/21 05:19 WBC RBC Hgb Hct MCV MCH MCHC RDW Plt Count MPV Immature Gran % (Auto) Neut % (Auto) Lymph % (Auto) Burleigh % (Auto) Eos % (Auto) Baso % (Auto) Lymph # (Auto) Burleigh # (Auto) Eos # (Auto) Baso # (Auto) Abs Immat Gran (auto) Absolute Neuts (auto) Absolute Nucleated RBC Nucleated RBC % (auto) Sodium 139 Potassium 4.0 Chloride 105 Carbon Dioxide 22 Anion Gap 16 BUN 17 H Creatinine 1.08 Estim Creat Clear Calc 60.0 Estimated GFR > 60 Random Glucose 159 H Calcium 8.9 Iron TIBC % Saturation Unsat Iron Binding Ferritin Total Bilirubin AST ALT Alkaline Phosphatase Total Protein Albumin Urine Color Urine Appearance Urine pH Ur Specific Harris Urine Protein Urine Glucose (UA) Urine Ketones Urine Blood Urine Nitrite Ur Leukocyte Esterase Stool Occult Blood Urine Opiates Screen Urine Fentanyl Screen Ur Barbiturates Screen Ur Phencyclidine Scrn Ur Amphetamines Screen U Benzodiazepines Scrn Urine Cocaine Screen U Marijuana (THC) Screen COVID-19 (SILVIA) COVID-19 Clin Com Blood Type Antibody Screen Crossmatch Mental Status Exam Mental Status Exam Narrative: A&O. In hospital attire, lying in bed, frail appearing. Poor eye c ontact, eyes closed, inattentive. No Tics or Tremors. No abnormal involuntary movements. Calm, cooperative, difficult to engage in meaningful conversation. Non-pressured speech, non-spontaneous with regular rate and rhythm, normal volume. No prolonged speech latency. Some dysarthria, mumbling speech. Mood is ?better,? affect is appropriate. Denies SI/SIB/HI upon inquiry. Denies A/VH. Endorses fixed paranoid and somatic delusional thought content. Thoughts are overall bizarre, illogical, circumstantial. He is confused about his medical status. Insight/ Judgment limited. Medications Medications Current Medications Acetaminophen (Acetaminophen 325 Mg Tablet) 650 mg PO Q6H PRN PRN Reason: PAIN/FEVER Amlodipine Besylate (Amlodipine Besylate 10 Mg Tablet) 10 mg PO DAILY [facility]; Protocol Last Admin: 02/15/21 08:31 Dose: 10 mg Documented by: Guaifenesin (Guaifenesin 100 Mg/5 Ml Liquid) 5 ml PO Q4H PRN PRN Reason: Cough Haloperidol (Haloperidol 1 Mg Tablet) 2 mg PO BID AUDREY Last Admin: 02/15/21 08:31 Dose: 2 mg Documented by: Lactic Acid (Ammonium Lactate 12 % Cream 140 Gm Tube) 1 appl TOPICAL BID PRN; Protocol PRN Reason: Dry Skin Mirtazapine (Mirtazapine 15 Mg Tablet) 15 mg PO BEDTIME AUDREY Ondansetron HCl (Ondansetron Hcl 4 Mg/2 Ml Vial) 4 mg IVPUSH Q8H PRN PRN Reason: Nausea and Vomiting Pharmacy Consult (Consult Rx Perform Med Rec) 1 each MISCELLANE ONCE PRN PRN Reason: Consult order Polyethylene Glycol (Polyethylene Glycol 3350 17 Gm Powd.Pack) 17 gm PO DAILY PRN PRN Reason: Constipation Risperidone (Risperidone 2 Mg Tablet) 2 mg PO BID [facility] Last Admin: 02/15/21 08:32 Dose: 2 mg Documented by: Sodium Chloride (0.9 % Sodium Chloride Flush 3 Ml Syringe) 3 ml IVFLUSH QSHIFT [facility] Last Admin: 02/15/21 14:41 Dose: 3 ml Documented by: Trazodone HCl (Trazodone Hcl 50 Mg Tablet) 50 mg PO BEDTIME [facility] Last Admin: 02/14/21 19:53 Dose: 50 mg Documented by: Allergies Allergies Allergy/AdvReac Type Severity Reaction Status Date / Time cephalexin [From Keflex] Allergy Unknown Verified 02/13/21 16:52 Assessment & Plan Assessment & Plan (1) Schizophrenia, chronic condition: Status: Acute Code(s): F20.9 - Schizophrenia, unspecified Assessment and Plan: Kasi is a 75 y.o. Male who carries a dx of schizophrenia. He presented to [facility] from SNF due to sx of depression, reportedly stated he wanted to . Admitted to [facility] [place] medical workup due to anemia, GI consult placed due to hx of colon CA, colostomy, positive for blood in stool. He has refused all invasive procedures. Lacks capacity for medical decisions and HCP invoked.? Plan: Per nurse at [facility], he was recently seen by their psych provider and started on remeron 7.5 mg QHS for sx of depression. Recommend to increase remeron dose to 15 mg QHS as this is a therapeutic dose for depression, discussed with HCP. He denies SI and states he feels safe. I also relayed information provided by to case management, as she would like him discharged home with nursing support from [facility].?Patient is also advocating not to return to SNF and would like to return home or be placed in [facility] hospital. -Continue monitoring medically. -Patient can leave when medically cleared. ? Greater than 50% of the session was spent on counseling and/or coordination of care
[2021-02-15] MEDS: traZODone HCL 50 MG TABLET PO (21:57)
[2021-02-15] MEDS: Mirtazapine 15 MG TABLET PO (21:57)
[2021-02-16 03:44] VITALS: BP 131/69; PULSE 86; RESP 18; TEMP 36.7; O2SAT 97
[2021-02-16 07:30] VITALS: BP 137/68; PULSE 87; RESP 15; TEMP 37.3; O2SAT 99
[2021-02-16 08:18] VITALS: BP 137/68; PULSE 87
[2021-02-16] MEDS: HaloperidoL 1 MG TABLET 2 MG PO (08:18)
[2021-02-16] MEDS: amLODIPine Besylate 10 MG TABLET PO (08:18)
[2021-02-16] MEDS: risperiDONE 2 MG TABLET PO (08:18)
[2021-02-16] MEDS: 0.9 % Sodium Chloride Flush 3 ML SYRINGE IVFLUSH ×3 (08:18→14:10)
[2021-02-16 11:35] VITALS: BP 128/58; PULSE 81; RESP 16; TEMP 36.7; O2SAT 98
[2021-02-16] MEDS: Acetaminophen 325 MG TABLET 650 MG PO (14:10)
[2021-02-16 14:30] LABS: Influenza A PCR NEGATIVE (Negative); Influenza B PCR NEGATIVE (Negative); Resp Syncy Virus RNA Qual PCR NEGATIVE (Negative); SARS COV2 PCR INHOUSE NEGATIVE (Negative)
[2021-02-16 15:39] VITALS: BP 150/70; PULSE 84; RESP 19; TEMP 37.2; O2SAT 100
--- NOTE | 2021-02-16 15:50 | MHC.CM.PN ---
pt has been accepted back at [facility] spoke with son nayana [phone] who is agreeable to pts return
--- NOTE | 2021-02-16 15:53 | PM.DS ---
DS: Providers Provider Date of Service: 02/16/21 Date of admission: 02/13/21 21:16 Date of discharge: 02/16/21 Primary care physician: Kia Colon MD Consults: 02/13/21 17:27 Consult to Care Team Stat Comment: Reason for consultation: SI 02/14/21 07:02 Consult to Gastroenterology Routine Consulting Provider: Doris Page Reason for consultation: anemia w positive guaiac Has provider been notified: No 02/15/21 12:10 Consult to Psychiatry Routine Consulting Provider: Psych Covering Reason for consultation: med management Has provider been notified: No DS: Diagnosis Discharge Diagnosis (1) Schizophrenia, chronic condition: Status: Acute (2) Severe anemia: Status: Acute DS: Summary Hospital Course Hospital Course: 75-year-old male with past medical history of CKD, HTN, insomnia, history of malignant neoplasm of colon status post colectomy and colostomy, schizophrenia who presents to the hospital from senior living stating that he does not want to live anymore.? Patient has a flat affect, not forthcoming with much history but reports that he is feeling significantly depressed and is just not doing well mentally and [facility].? While in the ED workup showed significant anemia with a hemoglobin of 6.6.? When discussed further patient does want blood transfusion and once further intervention and evaluation of his anemia therefore patient will be admitted for that reason. He denies any abdominal pain, no nausea or vomiting, no diarrhea or constipation, he denies any melena, denies any bright red blood per rectum, no hematochezia or hematemesis.? Patient denies any headache or change in vision, no chest pain or shortness of breath.? No urinary symptoms and no lower extremity edema. Hospital course: Patient transfuse 1 unit of packed red cells with improvement in hematocrit. Seen by GI but refused all interventions. Seen by Psychiatry; recommend increasing Remeron to 15 mg at HS. At this point time is Medical stable for transfer back to senior living Status at Discharge Cognitive/behavioral status at discharge: Stable Time Spent with Patient Time attestation: Total time spent providing and/or coordinating discharge services: Discharge coordination time: Greater than 30 minutes Quality: Stroke Does the patient have a stroke diagnosis?: No Physical Exam Vital Signs: Vital Signs: Last Vital Signs Temp 98.9 F 02/16/21 15:39 Pulse 84 02/16/21 15:39 Resp 19 02/16/21 15:39 BP 150/70 H 02/16/21 15:39 Pulse Ox 100 02/16/21 15:39 Body Mass Index 21.7 Const: Other: Confuse; alert no acute distress HENMT: Other: Membranes moist oropharynx clear Resp: Other: Lungs clear to auscultation all jo with good air entry. No wheezes rales or rhonchi Cardio: Other: No S4 positive S1-S2 no S3 without murmurs of gallops GI: Other: Soft nontender nondistended with normoactive bowel sounds. There is a function colostomy with soft brown stool Extrem: Other: No edema DS: Data Data Completed and Pending Labs on day of discharge: Laboratory Results - last 24 hr 02/16/21 13:40 Coronavirus (PCR) NEGATIVE Influenza Type A (PCR) NEGATIVE Influenza Type B (PCR) NEGATIVE RSV RNA Qual (PCR) NEGATIVE Discharge Plan Discharge Patient Disposition: Xfer Inpatient Rehab Fac Discharge Diagnosis: Depression Referrals: kirti thomson [Other] - 1 Week Kia Colon MD [Primary Care Provider] - 1 Week Discharge Medications: New mirtazapine 15 mg Tablet 15 mg PO BEDTIME Qty: 30 RF: 0 Continued acetaminophen 325 mg Tablet 650 mg PO Q6H PRN (Reason: PAIN/FEVER) RF: 0 trazodone 50 mg Tablet 50 mg PO BEDTIME RF: 0 guaifenesin 100 mg/5 mL Liquid 100 mg PO Q4H PRN (Reason: Cough) RF: 0 risperidone [Risperdal] 2 mg Tablet 2 mg PO BID RF: 0 amlodipine 10 mg Tablet 10 mg PO DAILY RF: 0 bisacodyl [Dulcolax (bisacodyl)] 10 mg Suppository 10 mg IN DAILY PRN (Reason: Constipation) RF: 0 ferrous sulfate 325 mg (65 mg iron) Tablet 325 mg PO DAILY RF: 0 ammonium lactate 12 % Cream 1 appl TOPICAL BID PRN (Reason: Dry Skin) RF: 0 polyethylene glycol 3350 [Miralax] 17 gram/dose Powder 17 g PO DAILY PRN (Reason: Constipation) RF: 0 haloperidol 2 mg Tablet 2 mg PO BID RF: 0 vitamin E 400 unit Capsule 400 unit PO DAILY RF: 0 Xarelto 15 mg Tablet 15 mg PO DAILY RF: 0 Discontinued mirtazapine 7.5 mg Tablet 7.5 mg PO BEDTIME RF: 0 Discharge Orders: Discharge Order (Routine); Ordered 02/16/21 Ordered By: Jack Staton Diet: advance to usual diet Activity on Discharge: As tolerated Stand Alone Forms: Patient Portal Discharge page Care Plan Goals: Maintain highest level of function Health Concerns: Stable mood Plan of Treatment: Rehab as tolerated Assessment: Stable
[2021-02-16 19:46] VITALS: BP 132/66; PULSE 81; RESP 19; TEMP 37.2; O2SAT 98
== END 2021-02-16 21:00 | DRG 378 ==
LOC: HO.ED 20:05 → HO.EDOVER 22:23 → HO.IMC 02-14 14:28
PROVIDERS: Admitting Provider Internal Medicine; Emergency Provider Internal Medicine; PCP Family Medicine Geriatric Medicine; Visit Provider Hospitalist
DX: K92.2 Gastrointestinal hemorrhage, unspecified (principal); R45.851 Suicidal ideations; Z20.822 Contact with and (suspected) exposure to COVID-19; I12.9 Hypertensive chronic kidney disease with stage 1 through stage 4 chronic kidney disease, or unspecified chronic kidney disease; F20.9 Schizophrenia, unspecified; N18.9 Chronic kidney disease, unspecified; D63.1 Anemia in chronic kidney disease; G47.00 Insomnia, unspecified; F32.9 Major depressive disorder, single episode, unspecified; Z93.3 Colostomy status; Z85.038 Personal history of other malignant neoplasm of large intestine; Z79.01 Long term (current) use of anticoagulants; Z79.899 Other long term (current) drug therapy
CPT/HCPCS: 0241U; 36415; 80048; 80053; 80307; 81003; 82272; 82728; 83540; 85025; 85027; 86850; 86900; 86901; 86923; 87635; 99285; P9016